=== PATIENT | female | born 1985 | race Caucasian/White ===

== ENCOUNTER 2025-01-04 14:35 | Emergency (ER) | payer BC ==
[~2025-01-04] VITALS: Ht 162.6 cm; Wt 77.2 kg
[2025-01-04] MEDS ORDERED: LORA-268 PO (15:39)
[2025-01-04 16:59] VITALS: BP 148/92; PULSE 78; RESP 16; TEMP 98.2; O2SAT 98
== END 2025-01-04 17:01 | disposition home or self-care (01) ==
LOC: ER 14:36
DX: F41.9 Anxiety disorder, unspecified (principal)
CPT/HCPCS: 99283